=== PATIENT | female | born 1985 | race Caucasian/White ===

== ENCOUNTER 2017-06-29 19:28 | Emergency (ER) | payer MEDICAID, OTHER ==
[~2017-06-29] VITALS: Ht 160 cm; Wt 68.0 kg
[~2017-06-29 19:28] MED LIST: METR-1 PO; OMEP20TA PO; PHEN100 PO; PHEN64.8 PO; PROP40TA3 PO
[2017-06-29 19:37] VITALS: BP 138/89; PULSE 125; RESP 24; TEMP 98.7; O2SAT 97
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
[2017-06-29] MEDS ORDERED: CLON1TAB PO (19:51)
[2017-06-29] MEDS ORDERED: LEVE250 PO (19:51)
[2017-06-29] MEDS ORDERED: DILA100C PO (19:51)
[2017-06-29] MEDS ORDERED: PHEN1TAB6 PO (19:51)
[2017-06-29] MEDS ORDERED: HALOPERIDOL LACTATE 5 MG/ML AMP IM ONE (20:00)
[2017-06-29] MEDS ORDERED: diphenhydrAMINE HCL 50 MG/ML VIAL IM ONE (20:00)
[2017-06-29] MEDS ORDERED: LORazepam 2 MG/ML VIAL IV PUSH ONE (20:00)
[2017-06-29 20:20] VITALS: BP 135/93; PULSE 112; RESP 21; O2SAT 98
[2017-06-29 20:57] LABS: AUTOMATED NEUTROPHIL # 4.9 TH/MM3 (1.8-7.7); BASOPHIL % 0.5 % (0.0-2.0); EOSINOPHIL # 0.1 TH/MM3 (0-0.4); EOSINOPHIL % 0.7 % (0.0-4.0); HEMATOCRIT 43.7 % (35.0-46.0); HEMO FLAGS DIFF FINAL; LYMPH % 29.6 % (9.0-44.0); LYMPHOCYTE # 2.3 TH/MM3 (1.0-4.8); MEAN CELL VOLUME 102.1 FL (80.0-100.0); MEAN CORPUSCULAR HEMOGLOBIN 35.2 PG (27.0-34.0); MEAN CORPUSCULAR HGB CONC 34.4 % (32.0-36.0); MONO % 7.5 % (0.0-8.0); NEUT % 61.7 % (16.0-70.0); PLATELET COUNT 202 TH/MM3 (150-450); RED BLOOD COUNT 4.28 MIL/MM3 (4.00-5.30); RED CELL DISTRIBUTION WIDTH 15.1 % (11.6-17.2); WHITE BLOOD COUNT 7.9 TH/MM3 (4.0-11.0)
[2017-06-29 21:10] LABS: BACTERIA, URINE OCC /hpf; BLOOD, URINE NEG (NEG); GLUCOSE,URINE NEG (NEG); KETONE, URINE NEG (NEG); MUCUS URINE FEW /lpf (OCC); NITRITE,URINE NEG (NEG); PH, URINE 5.5 (5.0-8.5); SQUAMOUS EPITHELIAL CELL URINE 1 /hpf (0-5); URINE COLOR LIGHT-YELLOW (YELLW/STRAW)
[2017-06-29 21:12] LABS: COMMENT (UR) CULT NOT INDICATED; CULTURE IF INDICATED CULT NOT INDICATED
[2017-06-29 21:18] LABS: ANION GAP 13 MEQ/L (5-15); AST (GOT) 27 U/L (15-37); BICARBONATE 23.4 MEQ/L (21.0-32.0); BLOOD UREA NITROGEN 16 MG/DL (7-18); CHLORIDE 104 MEQ/L (98-107); GLOMERULAR FILTRATION RATE 78 ML/MIN (>89); POTASSIUM 3.3 MEQ/L (3.5-5.1); SODIUM (NA) 140 MEQ/L (136-145)
[2017-06-29 21:19] LABS: ALT (GPT) 33 U/L (10-53)
[2017-06-29 21:21] LABS: ALKALINE PHOSPHATASE 65 U/L (45-117); TOTAL BILIRUBIN ADULT 0.3 MG/DL (0.2-1.0)
[2017-06-29 21:27] LABS: ALCOHOL 210 MG/DL (0-5)
--- NOTE | 2017-06-29 23:14 | PD ---
Physical Exam Narrative I have reviewed the treatment and plan for this pt and agree with need for medical restraint to prevent injury to self or others , she is sleeping comfortably and is observed in ER for 4 hrs Data Data Last Documented VS Vital Signs Date Time Temp Pulse Resp B/P (MAP) Pulse Ox O2 Delivery O2 Flow Rate FiO2 06/30/17 01:38 96 16 107/70 (82) 94 Room Air 06/29/17 19:37 98.7 Orders Orders Haloperidol Inj (Haldol Inj) (06/29/17 20:00) Diphenhydramine Inj (Benadryl Inj) (06/29/17 20:00) Lorazepam Inj (Ativan Inj) (06/29/17 20:00) Restraints Violent (06/29/17 19:54) Complete Blood Count With Diff (06/29/17 19:54) Comprehensive Metabolic Panel (06/29/17 19:54) Urinalysis - C+S If Indicated (06/29/17 19:54) Ed Urine Pregnancytest Poc (06/29/17 19:54) Oximetry (06/29/17 19:54) Iv Access Insert/Monitor (06/29/17 19:54) Ecg Monitoring (06/29/17 19:54) Cath For Specimen (06/29/17 19:54) Drug Screen, Random Urine (06/29/17 19:54) Alcohol (Ethanol) (06/29/17 19:54) Labs Laboratory Tests Test 06/29/17 20:25 White Blood Count 7.9 TH/MM3 Red Blood Count 4.28 MIL/MM3 Hemoglobin 15.1 GM/DL Hematocrit 43.7 % Mean Corpuscular Volume 102.1 FL Mean Corpuscular Hemoglobin 35.2 PG Mean Corpuscular Hemoglobin Concent 34.4 % Red Cell Distribution Width 15.1 % Platelet Count 202 TH/MM3 Mean Platelet Volume 8.4 FL Neutrophils (%) (Auto) 61.7 % Lymphocytes (%) (Auto) 29.6 % Monocytes (%) (Auto) 7.5 % Eosinophils (%) (Auto) 0.7 % Basophils (%) (Auto) 0.5 % Neutrophils # (Auto) 4.9 TH/MM3 Lymphocytes # (Auto) 2.3 TH/MM3 Monocytes # (Auto) 0.6 TH/MM3 Eosinophils # (Auto) 0.1 TH/MM3 Basophils # (Auto) 0.0 TH/MM3 CBC Comment DIFF FINAL Differential Comment Urine Color LIGHT-YELLOW Urine Turbidity HAZY Urine pH 5.5 Urine Specific [place] 1.012 Urine Protein NEG mg/dL Urine Glucose (UA) NEG mg/dL Urine Ketones NEG mg/dL Urine Occult Blood NEG Urine Nitrite NEG Urine Bilirubin NEG Urine Urobilinogen LESS THAN 2.0 MG/DL Urine Leukocyte Esterase SMALL Urine RBC 1 /hpf Urine WBC 8 /hpf Urine Squamous Epithelial Cells 1 /hpf Urine Bacteria OCC /hpf Urine Mucus FEW /lpf Microscopic Urinalysis Comment CULT NOT INDICATED Blood Urea Nitrogen 16 MG/DL Creatinine 0.84 MG/DL Random Glucose 94 MG/DL Total Protein 8.6 GM/DL Albumin 4.1 GM/DL Calcium Level 9.0 MG/DL Alkaline Phosphatase 65 U/L Aspartate Amino Transf (AST/SGOT) 27 U/L Alanine Aminotransferase (ALT/SGPT) 33 U/L Total Bilirubin 0.3 MG/DL Sodium Level 140 MEQ/L Potassium Level 3.3 MEQ/L Chloride Level 104 MEQ/L Carbon Dioxide Level 23.4 MEQ/L Anion Gap 13 MEQ/L Estimat Glomerular Filtration Rate 78 ML/MIN Urine Opiates Screen NEG Urine Barbiturates Screen NEG Urine Amphetamines Screen NEG Urine Benzodiazepines Screen POS Urine Cocaine Screen POS Urine Cannabinoids Screen NEG Ethyl Alcohol Level 210 MG/DL [facility] Supervised Visit with JESSEE: Yes Diagnosis Primary Impression: Medical clearance for incarceration Patient Instructions: General Instructions Disposition: [address] LAW ENFORCEMNT Condition: Stable Kaden Fish MD Jun 29, 2017 23:14
[2017-06-30 01:38] VITALS: BP 107/70; PULSE 96; RESP 16; O2SAT 94
== END 2017-06-30 01:51 ==
LOC: NEPC 19:28 → NEPD 06-30 01:51
DX: Z02.89 Encounter for other administrative examinations (principal); F10.129 Alcohol abuse with intoxication, unspecified; F14.129 Cocaine abuse with intoxication, unspecified; Y90.7 Blood alcohol level of 200-239 mg/100 ml; Z79.899 Other long term (current) drug therapy
CPT/HCPCS: 80053; 80307; 81001; 84703; 85025; 96372; 96374; 99285; J1200; J1630; J2060; P9612

== ENCOUNTER 2017-08-29 23:39 | Emergency (ER) | payer MEDICAID, OTHER ==
[~2017-08-29] VITALS: Ht 170.2 cm; Wt 70.0 kg
[~2017-08-29 23:39] MED LIST changes: +CLON1TAB PO; +DILA100C PO; +LEVE250 PO; -METR-1 PO; -OMEP20TA PO; -PHEN100 PO; +PHEN1TAB6 PO; -PHEN64.8 PO; -PROP40TA3 PO
[2017-08-29 23:46] VITALS: PULSE 132; RESP 18; TEMP 98.1
[2017-08-30] MEDS ORDERED: SODIUM CHLORIDE 0.9% FLUSH 10 ML FLUSH IVF PRN
[2017-08-30 00:03] VITALS: O2SAT 98
[2017-08-30 00:04] VITALS: BP 137/83; PULSE 114; RESP 18; O2SAT 97
[2017-08-30 00:42] LABS: AUTOMATED NEUTROPHIL # 3.8 TH/MM3 (1.8-7.7); BASOPHIL % 0.6 % (0.0-2.0); EOSINOPHIL % 0.6 % (0.0-4.0); HEMATOCRIT 44.5 % (35.0-46.0); HEMOGLOBIN 15.3 GM/DL (11.6-15.3); LYMPH % 31.4 % (9.0-44.0); MEAN CELL VOLUME 106.3 FL (80.0-100.0); MEAN CORPUSCULAR HEMOGLOBIN 36.5 PG (27.0-34.0); MEAN CORPUSCULAR HGB CONC 34.3 % (32.0-36.0); MEAN PLATELET VOLUME 7.8 FL (7.0-11.0); MONO % 8.2 % (0.0-8.0); MONOCYTE # 0.5 TH/MM3 (0-0.9); NEUT % 59.2 % (16.0-70.0); PLATELET COUNT 214 TH/MM3 (150-450); RED BLOOD COUNT 4.19 MIL/MM3 (4.00-5.30); RED CELL DISTRIBUTION WIDTH 13.6 % (11.6-17.2); WHITE BLOOD COUNT 6.4 TH/MM3 (4.0-11.0)
[2017-08-30 00:58] LABS: ALBUMIN 3.9 GM/DL (3.4-5.0); ALT (GPT) 15 U/L (10-53); AST (GOT) 20 U/L (15-37); BICARBONATE 23.3 MEQ/L (21.0-32.0); BLOOD UREA NITROGEN 10 MG/DL (7-18); CALCIUM 7.9 MG/DL (8.5-10.1); CHLORIDE 111 MEQ/L (98-107); CREATININE 0.71 MG/DL (0.50-1.00); GLOMERULAR FILTRATION RATE 94 ML/MIN (>89); GLUCOSE,RANDOM 112 MG/DL (74-106); SODIUM (NA) 146 MEQ/L (136-145)
[2017-08-30] MEDS ORDERED: LORazepam 1 MG TAB PO ONE (01:00)
[2017-08-30] MEDS ORDERED: ONDANSETRON ODT 4 MG TAB PO ONE (01:00)
[2017-08-30 01:02] LABS: ALKALINE PHOSPHATASE 69 U/L (45-117); TOTAL BILIRUBIN ADULT 0.1 MG/DL (0.2-1.0)
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
--- NOTE | 2017-08-30 02:09 | PD ---
HPI Chief Complaint: Seizure Time Seen by Provider: 23:57 Travel History International Travel<30 days: No Contact w/Intl Traveler<30days: No Traveled to known affect area: No History of Present Illness HPI 32-year-old female with reported history of seizure disorder, brought in by ambulance after her mother called 911 after the patient had a witnessed seizure. The patient apparently never usually goes to her mother's house. She was found sleeping on her mother's front lawn. Her mother then witnessed her have a very violent generalized appearing seizure. When EMS arrived, they noted that the patient was sleeping and appeared to be heavily intoxicated. While transporting her to the emergency department the patient had very violent outburst with very generalized/aggressive/violent body movements. She was given 4 mg of Ativan by EMS because they believed she was having a seizure and she was hitting her arms, legs, and head against objects in the ambulance. Upon arrival to the emergency department the patient is very agitated and yelling at staff. During my assessment she again had these violent generalized movements which subsided without any intervention after about 15 seconds. Patient did not appear to be post ictal after this event. Further history was obtained about 30 minutes later when the patient stated that she wanted to leave. She admits to drinking a significant amount of alcohol today. She states that she used to be an intravenous drug user, however has not used IV drugs in years. She denies using any illicit drugs today. She states that she takes Keppra 500 mg twice a day and reports compliance with this medication. She complains of right proximal/medial leg pain where she has an obvious hematoma/area of ecchymosis. PFSH Past Medical History Asthma: Yes Blood Disorders: No Cancer: No Cardiovascular Problems: No Chemotherapy: No Diminished Hearing: No Endocrine: No Genitourinary: No Immune Disorder: No Musculoskeletal: No Neurologic: No Psychiatric: No Reproductive: No Respiratory: Yes Radiation Therapy: No Seizures: Yes ?: Unknown LMP: 08/14 : 4 Para: 4 Miscarriage: 0 : 0 Tubal Ligation: Yes Past Surgical History AICD: No Arteriovenous Shunt: No Section: Yes (X1) Insulin Pump: No Joint Replacement: No Pacemaker: No Other Surgery: Yes (LEFT 5TH TOE AMPUTATION) Social History Alcohol Use: Yes (OCCASIONAL) Tobacco Use: Yes (1PPD) Substance Use: No (DENIES) Allergies-Medications (Allergen,Severity, Reaction): Coded Allergies: ketorolac (Unverified Allergy, Severe, RASH, 08/30/17) morphine (Unverified Allergy, Severe, SOB, 08/30/17) Reported Meds & Prescriptions Reported Meds & Active Scripts Active Reported Clonazepam 1 Mg Tab 1 Mg PO TID Dilantin (Phenytoin Extended) 100 Mg Cap 100 Mg PO TID Phenobarbital 100 Mg Tab 100 Mg PO BID Keppra (Levetiracetam) 250 Mg Tab 250 Mg PO BID Review of Systems Except as stated in HPI: all other systems reviewed are Neg Physical Exam Narrative GENERAL: Well-developed, well-nourished, appears intoxicated, no apparent distress. SKIN: Focused skin assessment warm/dry. Right proximal/anterior/medial leg with moderate size area of ecchymosis with underlying hematoma. All compartments in the right lower extremity are supple. HEAD: Atraumatic. Normocephalic. EYES: Pupils equal and round. No scleral icterus. No injection or drainage. ENT: Mucous membranes pink and moist. NECK: Trachea midline. No JVD. CARDIOVASCULAR: Regular rate and rhythm. RESPIRATORY: No accessory muscle use. Clear to auscultation. Breath sounds equal bilaterally. GASTROINTESTINAL: Abdomen soft, non-tender, nondistended. MUSCULOSKELETAL: Skin exam as above. No obvious deformities. No clubbing. No cyanosis. No edema. NEUROLOGICAL: Awake and alert. No obvious cranial nerve deficits. Motor grossly within normal limits. Normal speech. PSYCHIATRIC: Appropriate mood and affect; insight and judgment normal. Data Data Last Documented VS Vital Signs Date Time Temp Pulse Resp B/P (MAP) Pulse Ox O2 Delivery O2 Flow Rate FiO2 08/30/17 00:04 114 18 137/83 (101) 97 Room Air 08/29/17 23:46 98.1 Orders Orders Complete Blood Count With Diff (08/29/17 23:57) Alcohol (Ethanol) (08/29/17 23:57) Drug Screen, Random Urine (08/29/17 23:57) Electrocardiogram (08/29/17 ) Ct Brain W/O Iv Contrast(Rout) (08/29/17 ) Blood Glucose (08/29/17 23:57) Ecg Monitoring (08/29/17 23:57) Iv Access Insert/Monitor (08/29/17 23:57) Oximetry (08/29/17 23:57) Comprehensive Metabolic Panel (08/29/17 23:57) Sodium Chloride 0.9% Flush (Ns Flush) (08/30/17 00:00) Ct Cerv Spine W/O Contrast (08/29/17 ) Ct Facial Bones W/O Iv Cont (08/29/17 ) Lorazepam (Ativan) (08/30/17 01:00) Ondansetron Odt (Zofran Odt) (08/30/17 01:00) Tibia/Fibula (Ap/Lat) (08/30/17 ) Labs Laboratory Tests Test 08/30/17 00:14 08/30/17 00:36 White Blood Count 6.4 TH/MM3 Red Blood Count 4.19 MIL/MM3 Hemoglobin 15.3 GM/DL Hematocrit 44.5 % Mean Corpuscular Volume 106.3 FL Mean Corpuscular Hemoglobin 36.5 PG Mean Corpuscular Hemoglobin Concent 34.3 % Red Cell Distribution Width 13.6 % Platelet Count 214 TH/MM3 Mean Platelet Volume 7.8 FL Neutrophils (%) (Auto) 59.2 % Lymphocytes (%) (Auto) 31.4 % Monocytes (%) (Auto) 8.2 % Eosinophils (%) (Auto) 0.6 % Basophils (%) (Auto) 0.6 % Neutrophils # (Auto) 3.8 TH/MM3 Lymphocytes # (Auto) 2.0 TH/MM3 Monocytes # (Auto) 0.5 TH/MM3 Eosinophils # (Auto) 0.0 TH/MM3 Basophils # (Auto) 0.0 TH/MM3 CBC Comment DIFF FINAL Differential Comment Blood Urea Nitrogen 10 MG/DL Creatinine 0.71 MG/DL Random Glucose 112 MG/DL Total Protein 8.0 GM/DL Albumin 3.9 GM/DL Calcium Level 7.9 MG/DL Alkaline Phosphatase 69 U/L Aspartate Amino Transf (AST/SGOT) 20 U/L Alanine Aminotransferase (ALT/SGPT) 15 U/L Total Bilirubin 0.1 MG/DL Sodium Level 146 MEQ/L Potassium Level 3.6 MEQ/L Chloride Level 111 MEQ/L Carbon Dioxide Level 23.3 MEQ/L Anion Gap 12 MEQ/L Estimat Glomerular Filtration Rate 94 ML/MIN Ethyl Alcohol Level 351 MG/DL Urine Opiates Screen NEG Urine Barbiturates Screen NEG Urine Amphetamines Screen NEG Urine Benzodiazepines Screen NEG Urine Cocaine Screen NEG Urine Cannabinoids Screen NEG MDM Medical Decision Making Medical Screen Exam Complete: Yes Emergency Medical Condition: Yes Differential Diagnosis Breakthrough seizure, alcohol intoxication, drug intoxication, pseudoseizures, intracranial abnormality, metabolic abnormality Narrative Course Vital signs reviewed. CBC: WBC 6.4, hemoglobin 15.3, hematocrit 44.5, MCV 106.3, platelets 214. CMP is unremarkable. Urine drug screen is negative for all drugs tested. Alcohol level is 351. CT head: No acute disease. CT facial bones: No evidence of fracture. CT cervical spine: No evidence of fracture. Multilevel degenerative findings. Right tib-fib x-ray: No evidence of fracture. Patient is heavily intoxicated. On reassessment she is sleeping comfortably. She will be allowed to sleep off her intoxication in the emergency department and will be discharged when sober. The patient has a hematoma to her right proximal/anterior/medial leg with overlying ecchymosis. Ice was applied to this area, and reassessment at 5:40 AM shows that the swelling has significantly improved. All compartments in the right lower extremity remained supple. There are no concerning signs or symptoms to suggest compartment syndrome. Diagnosis Primary Impression: Alcohol intoxication Qualified Codes: F10.929 - Alcohol use, unspecified with intoxication, unspecified Additional Impressions: History of seizures Contusion of right leg Qualified Codes: S80.11XA - Contusion of right lower leg, initial encounter Referrals: [facility] 3 days Primary Care Physician 3 days Disposition: 01 DISCHARGE HOME Condition: Stable Jimbo Pulido MD Aug 30, 2017 02:09
[2017-08-30 05:39] VITALS: BP 124/75; PULSE 89; RESP 18; O2SAT 100
[2017-08-30 07:10] VITALS: BP 123/62; PULSE 100; RESP 18; O2SAT 95
--- NOTE | 2017-08-30 11:16 | PD ---
Physical Exam Narrative Pt was seen by prior provider. Pt is currently clinically sober and requesting to be discharged. Pt is ambulating with a limp and when asked said she does have right leg pain but refused evaluation. Pt refused physical exam and further evaluation of this and said she just wants to go home. Pt is clinically sober to make decision. Data Data Last Documented VS Vital Signs Date Time Temp Pulse Resp B/P (MAP) Pulse Ox O2 Delivery O2 Flow Rate FiO2 08/30/17 07:10 100 18 123/62 (82) 95 Room Air 08/29/17 23:46 98.1 Orders Orders Complete Blood Count With Diff (08/29/17 23:57) Alcohol (Ethanol) (08/29/17 23:57) Drug Screen, Random Urine (08/29/17 23:57) Ct Brain W/O Iv Contrast(Rout) (08/29/17 ) Blood Glucose (08/29/17 23:57) Ecg Monitoring (08/29/17 23:57) Iv Access Insert/Monitor (08/29/17 23:57) Oximetry (08/29/17 23:57) Comprehensive Metabolic Panel (08/29/17 23:57) Sodium Chloride 0.9% Flush (Ns Flush) (08/30/17 00:00) Ct Cerv Spine W/O Contrast (08/29/17 ) Ct Facial Bones W/O Iv Cont (08/29/17 ) Lorazepam (Ativan) (08/30/17 01:00) Ondansetron Odt (Zofran Odt) (08/30/17 01:00) Tibia/Fibula (Ap/Lat) (08/30/17 ) Ed Discharge Order (08/30/17 11:06) Labs Laboratory Tests Test 08/30/17 00:14 08/30/17 00:36 White Blood Count 6.4 TH/MM3 Red Blood Count 4.19 MIL/MM3 Hemoglobin 15.3 GM/DL Hematocrit 44.5 % Mean Corpuscular Volume 106.3 FL Mean Corpuscular Hemoglobin 36.5 PG Mean Corpuscular Hemoglobin Concent 34.3 % Red Cell Distribution Width 13.6 % Platelet Count 214 TH/MM3 Mean Platelet Volume 7.8 FL Neutrophils (%) (Auto) 59.2 % Lymphocytes (%) (Auto) 31.4 % Monocytes (%) (Auto) 8.2 % Eosinophils (%) (Auto) 0.6 % Basophils (%) (Auto) 0.6 % Neutrophils # (Auto) 3.8 TH/MM3 Lymphocytes # (Auto) 2.0 TH/MM3 Monocytes # (Auto) 0.5 TH/MM3 Eosinophils # (Auto) 0.0 TH/MM3 Basophils # (Auto) 0.0 TH/MM3 CBC Comment DIFF FINAL Differential Comment Blood Urea Nitrogen 10 MG/DL Creatinine 0.71 MG/DL Random Glucose 112 MG/DL Total Protein 8.0 GM/DL Albumin 3.9 GM/DL Calcium Level 7.9 MG/DL Alkaline Phosphatase 69 U/L Aspartate Amino Transf (AST/SGOT) 20 U/L Alanine Aminotransferase (ALT/SGPT) 15 U/L Total Bilirubin 0.1 MG/DL Sodium Level 146 MEQ/L Potassium Level 3.6 MEQ/L Chloride Level 111 MEQ/L Carbon Dioxide Level 23.3 MEQ/L Anion Gap 12 MEQ/L Estimat Glomerular Filtration Rate 94 ML/MIN Ethyl Alcohol Level 351 MG/DL Urine Opiates Screen NEG Urine Barbiturates Screen NEG Urine Amphetamines Screen NEG Urine Benzodiazepines Screen NEG Urine Cocaine Screen NEG Urine Cannabinoids Screen NEG MDM Supervised Visit with JESSEE: No Diagnosis Primary Impression: Alcohol intoxication Qualified Codes: F10.929 - Alcohol use, unspecified with intoxication, unspecified Additional Impressions: History of seizures Contusion of right leg Qualified Codes: S80.11XA - Contusion of right lower leg, initial encounter Referrals: [facility] 3 days Primary Care Physician 3 days Disposition: 01 DISCHARGE HOME Condition: Stable Esther Box Aug 30, 2017 11:16
== END 2017-08-30 11:30 | disposition home or self-care (01) ==
LOC: NEPC 23:39
DX: F10.129 Alcohol abuse with intoxication, unspecified (principal); G40.909 Epilepsy, unspecified, not intractable, without status epilepticus; S80.11XA Contusion of right lower leg, initial encounter; J45.909 Unspecified asthma, uncomplicated; F17.210 Nicotine dependence, cigarettes, uncomplicated; Y90.8 Blood alcohol level of 240 mg/100 ml or more
CPT/HCPCS: 70450; 70486; 72125; 73590; 80053; 80307; 85025